=== PATIENT | male | born 2005 | race Caucasian/White ===

== ENCOUNTER 2025-03-30 13:14 | Emergency (ER) | payer MEDICAID ==
[~2025-03-30] VITALS: Ht 177.8 cm; Wt 91.0 kg
[2025-03-30 13:17] VITALS: O2SAT 99
[2025-03-30 15:26] LABS: BASOPHILS % 0.6 % (0.0-2.0); EOSINOPHILS % 1.6 % (0.0-5.0); HEMATOCRIT. 45.2 % (42.0-52.0); HEMOGLOBIN. 15.5 g/dL (14.0-18.0); LYMPHOCYTES % 25.8 % (20.0-50.0); MEAN PLATELET VOLUME 8.3 fl (7.4-10.4); MONOCYTES % 6.6 % (2.0-8.0); NEUTROPHILS % 65.4 % (40.0-76.0); PLATELET 315 x1000/uL (130-400); RED BLOOD CELL COUNT 5.21 mill/uL (4.7-6.1); RED CELL DISTRIBUTION WIDTH 13.2 % (11.6-14.6)
[2025-03-30 16:03] LABS: CREATININE 1.0 mg/dL (0.6-1.3); UREA NITROGEN BLOOD 9 mg/dL (9-23)
[2025-03-30 16:05] LABS: ASPARTATE AMINOTRANSFERASE 30 IU/L (<34); BILIRUBIN DIRECT 0.2 mg/dL (<=3.0); TROPONIN I HIGH SENSITIVITY < 4 ng/L (3.0-53)
[2025-03-30 16:06] LABS: BILIRUBIN TOTAL 0.6 mg/dL (0.1-1.0); PROTEIN TOTAL 7.5 g/dL (6.0-8.3)
[2025-03-30 18:20] LABS: TROPONIN I HIGH SENSITIVITY 11 ng/L (3.0-53)
[2025-03-30] MEDS ORDERED: METO25TA6 MT (18:28)
[2025-03-30] MEDS ORDERED: DILT180T11 MT (18:29)
[2025-03-30 18:40] VITALS: BP 134/61; PULSE 60; RESP 14; TEMP 36.6; O2SAT 100
== END 2025-03-30 18:48 | disposition home or self-care (01) ==
LOC: ER 13:14
DX: R00.2 Palpitations (principal); I10 Essential (primary) hypertension; R06.02 Shortness of breath
CPT/HCPCS: 36415; 71045; 80048; 80076; 83735; 83880; 84484; 85025; 85379; 93005; 99285